=== PATIENT | female | born 1995 | race Asian ===

== ENCOUNTER → 2017-09-05 | Outpatient (REF) ==
[2017-09-06 08:06] LABS: HERPES ZOSTER, VARICELLA IgG 319 index (Immune >165)
[2017-09-08 00:07] LABS: QUANTIFERON GOLD TB Negative (Negative); TB Test (QFT) Antigen 0.38 IU/mL (.); TB Test (QFT) Antigen Minus Ni <0.01 IU/mL (.); TB Test (QFT) Mitogen >10.00 IU/mL (.); TB Test (QFT) Nil 0.47 IU/mL (.)
== END ==
LOC: M LAB 12:02
DX: Z00.00 Encounter for general adult medical examination without abnormal findings (principal)

== ENCOUNTER 2017-10-19 12:28 | Emergency (ER) | payer OTHER | END 2017-10-19 14:28 | disposition home or self-care (01) | LOC: M ED 12:28 | DX: M51.26 Other intervertebral disc displacement, lumbar region (principal); M51.27 Other intervertebral disc displacement, lumbosacral region | CPT/HCPCS: 72131 ==